=== PATIENT | female | born 1970 | race Caucasian/White ===

== ENCOUNTER 2023-06-07 23:09 | Emergency (ER) | payer OTHER, SELFPAY ==
[2023-06-07 23:11] VITALS: BP 176/108
--- NOTE | 2023-06-07 23:26 | ED.GENMED ---
History of Present Illness
General
Chief Complaint: Abdominal Pain
Source: patient
Exam Limitations: none
Time Seen by Provider: 06/07/23 23:15
Travel History
Have you had any contact with someone who has COVID-19?: No
Do you have any symptoms of coronavirus? Fever > 100 degrees, chills, cough, shortness of breath, sore throat, loss of taste or smell, muscle aches, or headache?: No
History of Present Illness
History of Present Illness:
This is a 52 year old female that comes in with c/o abd pain. States that she has a history of Ischemic colitis. States that she has been doing great until about 1 hours ago. States that she was getting ready for bed and she took her Miralax as she
normally does. States that she started with severe abd pain in the center of her abd the rolls to the left side. States that she has nausea and diarrhea. States that she has not really vomited. States that when the pain starts she is dizzy. Denies
any fever, chills, chest pain, SOB, vomiting, headache, urinary burning.
Past History
Past History
ED Past Medical History: CVA (No residural), HTN and Other (Gastroenteritis, Ischemic Colitis, Reynaud's, diverticulitis, )
ED Past Surgical History: Appendectomy, , Orthopedic (Right knee surgery, ) and Other (Abd reconstruction after Dehiscence of C-sect)
Social History
Tobacco: Former smoker
Alcohol: Occasional
Drug: None
Personal:
Living: with family
Employment: Employed
Family History
Family History: Hypertension
Review of Systems
Review of Systems
All Other Systems: ROS reviewed and negative except as documented in HPI and ROS
Constitutional: Reports no symptoms; Denies fever or chills
EENT: Reports no symptoms
Respiratory: Reports no symptoms; Denies cough or trouble breathing
Cardiac: Reports no symptoms; Denies chest pain
ABD/GI: Reports abdominal pain, nausea and diarrhea; Denies vomiting
: Reports no symptoms
Musculoskeletal: Reports no symptoms
Skin: Reports no symptoms
Neurological: Reports dizzy; Denies headache
Psychiatric: Reports no symptoms
Phy Exam
General Physical Exam
General Presentation: moderate distress
General age: appears stated age
General Skin: warm and dry
General Habitus: normal
General Mental: alert
General Hydration: appears well hydrated
ENT Exam
ENT Exam: TM's normal, pharynx normal and neck supple
Eye Exam
Eye Exam: EOMI
Cardiovascular Exam
Cardiovascular Exam: regular rate/rhythm, no edema, no murmur and normal peripheral pulses
Pulmonary Exam
Pulmonary Exam: lungs clear, no respiratory distress, no rales, chest non tender, no crackles, no rhonchi, no wheezing and no cough
Gastrointestinal Exam
Gastrointestinal Exam: soft, no organomegaly, no pulsatile mass, non distended, tender (Generalized tenderness L>R) and other (Hypoactive bowel sounds)
Musculoskeletal Exam
Musculoskeletal Exam: full ROM and no edema
Skin Exam
Skin Exam: normal color, warm/dry, no rash and no petechia
Psychiatric Exam
Psychiatric Exam: normal mood/affect
Course
Orders/Labs/Results
Orders:
Orders
06/07/23 23:25
IV Insert/Care/Rem.- Treatment PRN
Urinalysis Reflex To Culture Urgent
Date Specimen was Collected: 06/08/23
Time Specimen was Collected: 00:23
0.9% Sodium Chloride 1000 ml [Nss] 1,000 ml IV BOLUS
Dicyclomine HCl [Bentyl] 20 mg IM NOW STA
Iohexol [Omnipaque] See Protocol PO NOW STA
Ketorolac [Toradol] 30 mg IV NOW STA
Ondansetron Injectable [Zofran] 4 mg IV NOW STA
Test Result ONCE
06/07/23 23:53
Complete Blood Count/With Diff Urgent
Comprehensive Metabolic Panel Urgent
HCG, Serum Qualitative Screen Urgent
Lactic Acid Urgent
Lipase Urgent
06/08/23 00:19
Ondansetron Injectable [Zofran] 4 mg IV NOW STA
06/08/23 01:45
CT Abd/pel W Iv And Oral Contr Urgent
Reason For Exam: left sided abd pain
06/08/23 02:19
Acetaminophen 1000MG/100Ml [Ofirmev] 1,000 mg in 100 ml .ROUTE .STK-MED
06/08/23 02:30
Urine Microscopic Reflex Cult Urgent
06/08/23 02:31
Pantoprazole [Protonix IV] 40 mg .ROUTE .STK-MED ONE
Abnormal Lab Results
06/07/23 06/08/23
23:53 02:30
RBC 4.17 L 10^6/uL
(4.20-5.40)
MCH 32.4 H pg
(27.0-31.0)
MPV 10.7 H fL
(7.4-10.4)
Chloride 112 H mmol/L
(98-107)
Carbon Dioxide 16 L mmol/L
(22-30)
BUN 23 H mg/dl
(7-17)
Glucose 105 H mg/dl
(70-99)
Leukocyte Esterase Rfl Trace A
(Negative)
Urine Bacteria (Reflex) Few A
(Negative)
06/07/23 23:53
06/07/23 23:53
CBC normal, HCG negative
Vital Signs
Initial and Last Documented VS:
Initial Vital Signs
Pulse Resp BP Pulse Ox
122 28 176/108 100
06/07/23 23:11 06/07/23 23:11 06/07/23 23:11 06/07/23 23:11
Last Documented Vital Signs
Temp Pulse Resp BP Pulse Ox
97.7 F 68 16 124/77 100
06/08/23 01:00 06/08/23 01:00 06/08/23 01:00 06/08/23 01:00 06/08/23 01:00
MDM/Problems Addressed
Differential Diagnosis Includes:
Diverticulitis, Bowel obstruction, Ischemic colitis
MDM/Problems Addressed:
This is a 52 year old female that comes in with c/o abd pain. States that this started about 1 hour ago and it starts in the middle of her abd and rolls to the left side. States that she has been going well since her Ischemic Colitis.
Will get labs and CT scan. Juan C medicate for pain and give IV fluids
Back into see patient. Reviewed labd and CT scan. Offered patient admission for her abd pain but patient would rather go home. Will discharge home.
Chronic conditions affecting care: Previous abdomnial surgery
Acute Exacerbation and/or Progression of Chronic Illness:
Ischemic colitis
Acute Exacerbation and/or Progression of Chronic Illness: Previous abdomnial surgery
*Pulse Oximetry
Patient hypoxic: no
*EKG
Interpreted by ED Provider?: NA
Rate: EKG- N/A
*Critical Care Note
Total Time (30-74mins, 75-104mins- exclusive of procedures): Not Applicable
ED Attending Note
-
Portions of this chart may have been created with voice recognition software.� Occasional wrong word or��sound alike� substitutions may have occurred due to the inherent limitations of voice recognition software.
Discharge Plan
Departure
Patient Disposition: Home (Routine Discharge)
Patient with high blood pressure during this ER visit?: No
Condition: Good
Covid-19: Not Applicable
Discharge Problem:
Abdominal pain
Instructions: Abdominal Pain
Prescriptions:
No Action
hydrochlorothiazide 25 MG tablet
25 mg PO .WEEKLY
amlodipine 2.5 mg tablet
5 mg PO DAILY
dicyclomine 20 mg tablet
20 mg PO QID PRN (Reason: stomach cramps)
hyoscyamine sulfate 0.125 mg tablet, sublingual
0.125 mg PO DAILY PRN (Reason: stomach issues)
polyethylene glycol 3350 [Miralax] 17 gram/dose powder
4 g PO DAILY Qty: 119 0RF
Benefiber Clear SF (dextrin) 3 gram/3.5 gram powder in packet
1 packet PO .[id number]
Referrals:
Baljinder Lazcano MD [Family Provider] - Call in 1-3 days for appt
Activity Restrictions/Additional Instructions:
As dsicussed, your blood work shows that you are dehydrated. Please increase your water intake to 8-8oz glasses daily. Your Lactic acid is normal along with the CT scan. This may be a GI viral syndrome. YOu may use Tylenol 1000mge very 6 hours for
pain and alternate with Ibuprofen 600mg every 6 hours with food. Follow up with the GI specialist for further evaluation. IF YOU HAVE INCREASED OR CHANGING PAIN, OR YOU HAVE ANY OTHER CONCERNS PLEASE RETURN TO THE EMERGENCY ROOM.
Interventions
Interventions:
*Risk Screen - Suicide Last Done: 06/07/23 23:11
*General Assessment Last Done: 06/08/23 03:40
*Neglect/Abuse Screening Last Done: 06/07/23 23:11
ED- Fall Risk Assessment Last Done: 06/08/23 00:13
*ED COVID-19 Vaccine History Last Done: 06/07/23 23:58
*Nursing Disposition Last Done: 06/08/23 03:40
JZ-Xsdhvc-Tytrnbjtgb Assessment Last Done: 06/08/23 00:13
Discharge Date and Time
Discharge Date/Time: 06/08/23 03:40
[2023-06-07] MEDS: BENTYL 20 MG IM (23:55)
[2023-06-07] MEDS: NSS 1000 IV (23:55)
[2023-06-07] MEDS: TORADOL 30 MG IV (23:56)
[2023-06-07] MEDS: OMNIPAQUE 50 ML PO (23:56)
[2023-06-07] MEDS: ZOFRAN 4 MG IV (23:57)
[2023-06-07 23:58] VITALS: BMI 23.7
[2023-06-08] LABS: % Basophils 0.5 % (0-2); % Eosinophils 0.9 % (0-6); % Immature Granulocytes 0.2 % (0-0.5); % Lymphocytes 24.9 % (20.5-51.1); % Monocytes 7.1 % (1.7-9.3); % Neutrophils 66.4 % (42.2-75.2); Absolute Eosinophils 0.1 10^3/uL (0-0.7); Absolute Lymphocytes 2.2 10^3/uL (1.2-3.4); Absolute Monocytes 0.6 10^3/uL (0.1-0.6); Absolute Neutrophils 5.8 10^3/uL (1.4-6.5); Hematocrit 37.2 % (37.0-47.0); Hemoglobin 13.5 g/dL (12.0-16.0); Mean Corp Hgb Conc. 36.3 g/dL (33.0-37.0); Mean Corpuscular Hgb 32.4 pg (27.0-31.0); Mean Corpuscular Volume 89.2 fL (81.0-99.0); Mean Platelet Volume 10.7 fL (7.4-10.4); Nucleated Red Blood Cells % 0 %; Platelet Count 317 10^3/uL (130-400); Red Blood Cell Count 4.17 10^6/uL (4.20-5.40); Red Cell Dist. Width 12.6 % (11.5-14.5); White Blood Cell Count 8.8 10^3/uL (4.8-10.8)
[2023-06-08 00:06] LABS: HCG, Serum Qualitative Screen Negative
[2023-06-08 00:08] VITALS: BP 141/77
[2023-06-08 00:24] LABS: ALT (SGPT) 29 U/L (0-35); AST (SGOT) 32 U/L (14-36); Albumin 4.3 g/dl (3.5-5.0); Alkaline Phosphatase 110 U/L (38-126); Blood Urea Nitrogen 23 mg/dl (7-17); Carbon Dioxide 16 mmol/L (22-30); Chloride 112 mmol/L (98-107); Estimated Creatinine Clearance 64 ml/min; Glucose 105 mg/dl (70-99); Lipase 162 U/L (23-300); Potassium 3.8 mmol/L (3.5-5.1); Sodium 137 mmol/L (135-145); Total Bilirubin 0.7 mg/dl (0.2-1.3); eGFR > 60.00
[2023-06-08] MEDS: ZOFRAN 4 MG IV (00:28)
[2023-06-08 01:00] VITALS: BP 124/77
--- NOTE | 2023-06-08 04:17 | DOWNTIME ---
There was a [employer] Downtime on 06/08/2023 from 0111 to 06/08/2023 at 0405. Downtime documentation of patient's care, including medication administrations, has been reconciled in the electronic record per guidelines. Refer to the
patient's paper chart under the miscellaneous tab to see printed paper medication records and downtime forms.
[2023-06-08 05:18] LABS: Urine Albumin Negative (Neg - Trace); Urine Bilirubin Negative (Negative); Urine Character Clear (Clear); Urine Color Yellow; Urine Glucose Negative (Negative); Urine Ketone Negative (Negative); Urine Leukocyte Trace (Negative); Urine Nitrite Negative (Negative); Urine Occult Blood Negative (Negative); Urine Urobilinogen Negative (Neg - 1+)
[2023-06-08 05:19] LABS: Urine Bacteria Few (Negative); Urine Red Blood Cell None Seen /HPF (0-2)
== END 2023-06-08 03:40 | disposition home or self-care (01) ==
LOC: EMR 23:09
PROVIDERS: Clinical Nurse Specialist Family Health; EMERGENCY PHYSICIAN Emergency Medicine; FAMILY PHYSICIAN Family Medicine
DX: R10.9 Unspecified abdominal pain (principal); I10 Essential (primary) hypertension; Z82.49 Family history of ischemic heart disease and other diseases of the circulatory system; Z86.73 Personal history of transient ischemic attack (TIA), and cerebral infarction without residual deficits; Z87.891 Personal history of nicotine dependence; Z90.49 Acquired absence of other specified parts of digestive tract
CPT/HCPCS: 99284; 96374 ×2; 96375; 74177; 80053; 81003; 81015; 83605; 83690; 84703; 85025; Q9967

== ENCOUNTER 2023-12-24 03:17 | Inpatient (IN) | payer OTHER, SELFPAY ==
[2023-12-24] VITALS (8 sets, daily range): BP systolic 106–170; BP diastolic 66–100
--- NOTE | 2023-12-24 01:43 | ED.GENMED ---
History of Present Illness
General
Chief Complaint: Abdominal Symptoms
Source: patient
Exam Limitations: none
Time Seen by Provider: 12/24/23 01:36
Nursing documentation reviewed up to this point in time: agreed with
History of Present Illness
History of Present Illness:
The patient is a 53-year-old female who arrives via ambulance for 2 days of severe nausea and vomiting. Patient has a history of colitis and constipation. She reports she has not had a solid large bowel movement for at least 3 to 4 days. She
reports she has had liquidy diarrhea for the last 2 days. She denies fever. She denies abdominal pain. Patient was given Zofran en route but states it has not helped. Patient appears extremely anxious. She reports occasional alcohol use and
frequent use of marijuana. She last used marijuana 2 days ago. She reports she had 1 alcoholic drink this evening.
Past History
Past History
ED Past Medical History: CVA (No residural), HTN and Other (Gastroenteritis, Ischemic Colitis, Reynaud's, diverticulitis, )
ED Past Surgical History: Appendectomy, , Orthopedic (Right knee surgery, ) and Other (Abd reconstruction after Dehiscence of C-sect)
Social History
Tobacco: Former smoker
Alcohol: Occasional
Drug: None
Personal:
Living: with family
Employment: Employed
Family History
Family History: Hypertension
Review of Systems
Review of Systems
Allergies reviewed?: Yes
All Other Systems: ROS reviewed and negative except as documented in HPI and ROS
Constitutional: Reports no symptoms
EENT: Reports no symptoms
Respiratory: Reports no symptoms
Cardiac: Reports no symptoms
ABD/GI: Reports nausea, diarrhea, constipated and anorexia
: Reports no symptoms
Musculoskeletal: Reports no symptoms
Skin: Reports no symptoms
Neurological: Reports no symptoms
Endocrine: Reports no symptoms
Hematologic/Lymphatic: Reports no symptoms
Psychiatric: Reports no symptoms
Phy Exam
Physical Exam
Physical Exam:
Physical Exam
General: Patient appears extremely anxious. Is dry heaving
Neck: Dry mucous membrane
Heart: Tachycardic
Lungs: no acute respiratory distress. clear bilaterally
Abdomen: normal bowel sounds. not tender. no CVAT.
Neuro: alert and oriented. no focal neurological deficits
Skin: no rash
Psychiatric: Extremely anxious
Extremities: no edema. no calf tenderness. negative homans. good distal pulses
Course
Orders/Labs/Results
Orders:
Orders
12/24/23 01:36
Diphenhydramine [Benadryl] 25 mg IV NOW STA
12/24/23 01:37
0.9% Sodium Chloride 1000 ml [Nss] 1,000 ml IV BOLUS
Prochlorperazine [Compazine] 10 mg IV NOW STA
12/24/23 01:49
Alcohol Urgent
Complete Blood Count/With Diff Urgent
Comprehensive Metabolic Panel Urgent
Lactic Acid Urgent
Lipase Urgent
12/24/23 02:12
Electrocardiogram (*1) Urgent
Reason for Study: Abdominal Pain
EKG- Treatment ONCE
12/24/23 02:14
Lorazepam [Ativan] 1 mg IV NOW STA
12/24/23 02:15
CT Abd/pelvis W Iv Cont Urgent
Comment:
Reason For Exam: n/v, acidotic
0.9% Sodium Chloride 1000 ml [Nss] 1,000 ml IV BOLUS
12/24/23 03:05
Admit/Transfer Patient As Directed
Co-Sign Provider:
Level of Care: Inpatient admission
Assign to:: Telemetry
Physician / Group: Solomon
Diagnosis: Intractable N/V, Constipation
Reason for Telemetry: Arrhythmia
Date to Stop Telemetry: 12/27/23
Time to Stop Telemetry: 11:00
Reason for Hospitalization: Intractable N/V, Constipation
Expected length of stay greater than two midnights?: Yes
ELOS- Estimated Length of Stay in days: 2
I certify the patient meets the requirements for IP care: Yes
PRN Pain Medication Management As Directed
May give lesser potent ordered pain med per pt: Yes
preference::
Protocol:: Medication orders for pain may be administered in a
manner that supports deferring to patient preference
when the pt is:
- Requesting an ordered lesser potent pain medication.
Least to most potent pain medications are defined
as: acetaminophen < NSAID < tramadol < opioids
(morphine, oxycodone, hydromorphone).
- Requesting a lesser dose of the same medication IF
ORDERED.
- Requesting a less intrusive route of administration
if both routes are prescribed by the provider (PO <
IV).
12/24/23 03:06
Code Status As Directed
Resuscitation Status: Full Code
12/24/23 04:10
Acetaminophen [Tylenol] 650 mg PO Q4HPRN PRN
Dicyclomine [Bentyl] 20 mg PO QID PRN
Lactated Ringers [Lr] 1,000 ml IV 150 mls/hr
12/24/23 04:10
Consult Notification Routine
Specialty to Notify: Gastroenterology
Date consulting provider notified: 12/24/23
Time consulting provider notified: 07:53
Notified:: Provider
Comment: via TT
GASTROINTESTINAL CONSULT Routine
Consulting Provider: Zunilda Peralta
Was physician already notified: No
Reason for consult: Intractable N/V, Constipation
Activity As Directed
Activity Level: Ambulate
I/O [Intake/ Output] As Directed
Frequency: Per unit guidelines
Orthostatic Vital Signs As Directed
Orthostatic VS Frequency: BID
Pneumatic Compression Sleeves As Directed
Type: Knee high
Vital Signs As Directed
Frequency: Per unit guidelines
Oxygen Therapy [O2 Therapy] [RESP] Routine
Titrate/Wean O2 to maintain O2 sat greater than (%): 94
DX Deep Vein Thrombosis Video Routine
12/24/23 07:40
Basic Metabolic Panel IN AM
Complete Blood Count/No Diff IN AM
Lactic Acid Q6H
TSH Reflex To Free T4 Routine
12/24/23 08:00
Amlodipine [Norvasc] 5 mg PO DAILY
Polyethylene Glycol Powder [Miralax] 17 grams PO DAILY
12/24/23 09:46
Lactic Acid Q6H
12/24/23 22:00
Sennosides [Senokot] 17.2 mg PO HS
12/24/23 22:16
Lactic Acid Q6H
12/27/23 11:00
DC Protocol for Telemetry ONCE
Abnormal Lab Results
12/24/23
01:49
WBC 11.1 H 10^3/uL
(4.8-10.8)
RBC 3.97 L 10^6/uL
(4.20-5.40)
Hct 35.1 L %
(37.0-47.0)
MCH 31.7 H pg
(27.0-31.0)
MPV 10.6 H fL
(7.4-10.4)
Absolute Neuts (auto) 8.3 H 10^3/uL
(1.4-6.5)
Lymphocytes % 19.3 L %
(20.5-51.1)
Chloride 109 H mmol/L
(98-107)
Carbon Dioxide 16 L mmol/L
(22-30)
Glucose 136 H mg/dl
(70-99)
Lactic Acid 4.0 H* mmol/L
(0.7-2.0)
12/24/23 01:49
12/24/23 01:49
Vital Signs
Initial and Last Documented VS:
Initial Vital Signs
Pulse Ox
100
12/24/23 01:38
Last Documented Vital Signs
Temp Pulse Resp BP Pulse Ox
98.4 F 68 16 155/75 99
12/25/23 12:00 12/25/23 12:00 12/25/23 12:00 12/25/23 12:00 12/25/23 12:00
MDM/Problems Addressed
Differential Diagnosis Includes:
Acute gastroenteritis, acute colitis, acute diverticulitis, small bowel obstruction, constipation
MDM/Problems Addressed:
Patient presents with acute vomiting and nausea
Chronic conditions affecting care:
Constipation, marijuana use
Chronic conditions affecting care: Previous abdomnial surgery
Acute Exacerbation and/or Progression of Chronic Illness: Previous abdomnial surgery
*Pulse Oximetry
Patient hypoxic: no
*EKG
Interpreted by ED Provider?: Yes
Interpretation: normal
Comparison EKG: no changes
Rate: normal
Rhythm: sinus
[place]: normal axis
Interval: normal interval
QRS Pattern: normal QRS
Ischemia: no ischemia
*Twister Tender Interpretation
Rate: normal
Interpretation: normal
Rhythm: sinus
*Critical Care Note
Total Time (30-74mins, 75-104mins- exclusive of procedures): Not Applicable
Data Reviewed
Review of Other/Old Records Reveals: Radiology Studies (CT abdomen pelvis reviewed from May 2023 which showed no acute disease and possible constipation)
Source: patient
ED Attending Note
-
Portions of this chart may have been created with voice recognition software.� Occasional wrong word or��sound alike� substitutions may have occurred due to the inherent limitations of voice recognition software.
Discharge Plan
Departure
Patient Disposition: Admit
Date of Disposition: 12/24/23
Time of Disposition: 02:53
Admit to: Med/Surg
Presentation/result/management discussed w/ accepting MD/DO: Hospitalist
Patient with high blood pressure during this ER visit?: Yes
Condition: Good
Covid-19: Not Applicable
Discharge Problem:
Acute lactic acidosis, Intractable nausea and vomiting
Interventions
Interventions:
*Risk Screen - Suicide Last Done: 12/24/23 01:57
*General Assessment Last Done: 12/24/23 01:40
*Neglect/Abuse Screening Last Done: 12/24/23 01:57
ED- Fall Risk Assessment Last Done: 12/24/23 03:49
*ED COVID-19 Vaccine History Last Done: 12/24/23 02:02
*Nursing Disposition Last Done: 12/24/23 03:49
TY-Cbqpkz-Hmermqgzmn Assessment Last Done: 12/24/23 01:37
Discharge Date and Time
Discharge Date/Time: 12/24/23 04:05
[2023-12-24] MEDS: BENADRYL 25 MG IV (01:46)
[2023-12-24] MEDS: COMPAZINE 10 MG IV (01:47)
[2023-12-24] MEDS: NSS 1000 IV ×2 (01:48→02:29)
[2023-12-24 01:58] LABS: % Basophils 0.6 % (0-2); % Eosinophils 0.5 % (0-6); % Immature Granulocytes 0.4 % (0-0.5); % Lymphocytes 19.3 % (20.5-51.1); % Monocytes 4.3 % (1.7-9.3); % Neutrophils 74.9 % (42.2-75.2); Absolute Basophils 0.1 10^3/uL (0-0.2); Absolute Eosinophils 0.1 10^3/uL (0-0.7); Absolute Lymphocytes 2.1 10^3/uL (1.2-3.4); Absolute Monocytes 0.5 10^3/uL (0.1-0.6); Absolute Neutrophils 8.3 10^3/uL (1.4-6.5); Hematocrit 35.1 % (37.0-47.0); Hemoglobin 12.6 g/dL (12.0-16.0); Mean Corp Hgb Conc. 35.9 g/dL (33.0-37.0); Mean Corpuscular Hgb 31.7 pg (27.0-31.0); Mean Corpuscular Volume 88.4 fL (81.0-99.0); Mean Platelet Volume 10.6 fL (7.4-10.4); Nucleated Red Blood Cells % 0 %; Platelet Count 243 10^3/uL (130-400); Red Blood Cell Count 3.97 10^6/uL (4.20-5.40); Red Cell Dist. Width 12.9 % (11.5-14.5); White Blood Cell Count 11.1 10^3/uL (4.8-10.8)
[2023-12-24 02:11] LABS: ALT (SGPT) 25 U/L (0-35); AST (SGOT) 24 U/L (14-36); Albumin 4.5 g/dl (3.5-5.0); Alkaline Phosphatase 97 U/L (38-126); Blood Urea Nitrogen 12 mg/dl (7-17); Carbon Dioxide 16 mmol/L (22-30); Chloride 109 mmol/L (98-107); Glucose 136 mg/dl (70-99); Lipase 109 U/L (23-300); Potassium 3.7 mmol/L (3.5-5.1); Sodium 143 mmol/L (135-145); Total Bilirubin 0.5 mg/dl (0.2-1.3); Total Protein 6.8 g/dl (6.3-8.2); eGFR > 60.00
[2023-12-24] MEDS: ATIVAN 1 MG IV (02:24)
--- NOTE | 2023-12-24 03:18 | HPS.HSE ---
Family Physician
-
Family Physician: PHYSICIAN PRIVATE
Chief Complaint
-
N/V, Constipation
History of Present Illness
Patient is a 53y F with PMH significant for hypertension, constipation and prior colitis / ? ischemic who presents to ED complaining of N/V and constipation. Patient states that she has not had a solid BM for the past 3-4 days. She reports
development of N/V which has persisted for the past 2 days. She denies any fevers / chills, urinary symptoms or abdominal pain. Patient was evaluated in the ED and treated for her nausea.
At the time of my examination, patient is soundly sleeping and somewhat difficult to arouse after IV Ativan, Benadryl and Compazine.
Patient admits to frequent marijuana use. She drinks alcohol occasionally and reportedly had alcohol earlier this evening.
Patient was described as very anxious for ED physician assessment.
Medical History
Past Medical History
Past Medical History: Reports Other
Additional Past Medical History:
Hypertension
Chronic Constipation
ADD
Reported TIA (2010)
Diverticular Disease
Reported Ischemic Colitis
Past Surgical History: Reports Other
Additional Past Surgical History:
Right Knee Arthroscopy
Appendectomy
Social History
Tobacco: Former Smoker
Alcohol: Occasional
Drug: Marijuana (Frequent use. Last 2-3 days ago.)
Family History
Family History: Not pertinent
Allergies / Home Medications
Allergies reflects when Allergies were last updated in [employer].
Home Medications with original date entered in [employer]
Allergy/Medication List:
Allergies
Allergy/AdvReac Type Severity Reaction Status Date / Time
morphine Allergy Shortness Verified 12/24/23 01:37
of Breath
naproxen Allergy vomiting Verified 12/24/23 01:37
nut - unspecified Allergy Anaphylaxis Verified 12/24/23 01:37
Penicillins Allergy Unknown Verified 12/24/23 01:37
Home Medications
hydrochlorothiazide 25 mg tablet 25 mg PO DAILY 04/16/12
amlodipine 2.5 mg tablet 5 mg PO DAILY 11/04/22
dicyclomine 20 mg tablet 20 mg PO QID PRN stomach cramps 11/04/22
hyoscyamine sulfate 0.125 mg sublingual tablet 0.125 mg PO DAILY PRN stomach issues 11/04/22
polyethylene glycol 3350 17 gram/dose oral powder (Miralax) 4 g PO DAILY #119 grams 11/06/22
wheat dextrin 3 gram/3.5 gram oral powder packet (Benefiber Clear Sugar Free(dextrin)) 1 packet PO .[id number] 06/08/23
Review of Systems
-
History Source: Patient (Limited ROS due to somnolence.)
Constitutional: Denies Fever or Chills
Abdomen/GI: Reports Nausea, Vomiting and Constipated; Denies Abdominal Pain
Physical Exam
Vital Signs
Vital Signs
Temp Pulse Resp BP Pulse Ox
98.3 F 53 18 142/100 98
12/24/23 02:01 12/24/23 02:01 12/24/23 02:01 12/24/23 02:01 12/24/23 02:01
Physical Exam
General: Other (53y F sleeping comfortably after meds in the ED. Difficult to rouse.)
HEENT: Other (Dry MM. Neck supple.)
Respiratory: Clear; No Wheezes, Rales or Rhonchi
Cardiac: S1/S2 and Regular Rhythm; No Murmur
GI: Soft, Non Tender, Non Distended and Normal Bowel Sounds
Musculoskeletal: No Clubbing, No Cyanosis and No Edema
Laboratory Results
-
12/24/23 01:49
12/24/23 01:49
Laboratory Results
Lactic Acid 4.0 mmol/L (0.7-2.0) H* 12/24/23 01:49
Total Bilirubin 0.5 mg/dl (0.2-1.3) 12/24/23 01:49
AST 24 U/L (14-36) 12/24/23 01:49
ALT 25 U/L (0-35) 12/24/23 01:49
Alkaline Phosphatase 97 U/L (38-126) 12/24/23 01:49
Lipase 109 U/L (23-300) 12/24/23 01:49
Impression/Plan
-
A/P: Patient is a 53y F with PMH significant for constipation and hypertension who presents to ED complaining of constipation and N/V for the past 2 days.
Diffuse Colitis
Chronic Constipation
N/V secondary to the above
Lactic Acidosis secondary to the above
- Admit for further evaluation and treatment.
- CT scan done in the ED shows mild, diffuse wall thickening c/w colitis.
- Elevated lactic acid - but no imaging findings specific for regional ischemia (in fact diffuse colitis makes this somewhat less likely).
- Cover with IV abx for now and follow for clinical improvement.
- Supportive care including IVFs, bowel regimen, antiemetics, etc.
- Follow serial lactate levels for improvement with IVF replacement.
- GI evaluation for additional recommendations.
- Would family court counsellor against continued marijuana use given correlation with N/V issues.
Benign Hypertension
- Continue amlodipine with holding parameters.
- Would hold HCTZ and likely remain off of this given chronic issues with constipation / dehydration.
Anxiety / Depression
- Very anxious on arrival to the ED.
- After medications, now sleeping soundly.
- Not on any maintenance medications for mood - consider SSRI or similar.
- Fairly somnolent following med administration in the ED - follow for improvement in mental state as meds wear off.
DVT Prophylaxis: SCDs
Code Status: Full
[2023-12-24] MEDS: COMPAZINE 5 MG IV (05:06)
[2023-12-24] MEDS: FLAGYL 500 MG 100 IV (05:06)
[2023-12-24] MEDS: LR 1000 IV ×3 (05:06→21:45)
[2023-12-24 05:45] LABS: Alcohol 104 mg/dl
[2023-12-24] MEDS: LEVAQUIN 100 IV (06:15)
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
[2023-12-24 07:41] LABS: Amphetamines Negative (Negative)
[2023-12-24 07:42] LABS: Barbiturates Negative (Negative); Benzodiazepines Positive (Negative); Buprenorphine Negative (Negative); Cocaine Negative (Negative); Marijuana Positive (Negative); Methadone Negative (Negative); Methamphetamines Negative (Negative); Opiates Negative (Negative); Phencyclidine Negative (Negative); Tricyclic Antidepressants Negative (Negative)
[2023-12-24 08:01] LABS: Lactic Acid 2.7 mmol/L (0.7-2.0)
[2023-12-24 08:24] LABS: Fentanyl, Urine Negative (Negative)
[2023-12-24 08:27] LABS: Hematocrit 35.3 % (37.0-47.0); Hemoglobin 12.7 g/dL (12.0-16.0); Mean Corpuscular Hgb 32.6 pg (27.0-31.0); Mean Corpuscular Volume 90.5 fL (81.0-99.0); Mean Platelet Volume 11.4 fL (7.4-10.4); Platelet Count 231 10^3/uL (130-400); White Blood Cell Count 9.7 10^3/uL (4.8-10.8)
[2023-12-24 09:48] LABS: Blood Urea Nitrogen 7 mg/dl (7-17); Calcium 9.3 mg/dl (8.4-10.2); Carbon Dioxide 13 mmol/L (22-30); Chloride 104 mmol/L (98-107); Estimated Creatinine Clearance 85 ml/min; Glucose 119 mg/dl (70-99); Sodium 138 mmol/L (135-145); eGFR > 60.00
[2023-12-24 10:03] LABS: Lactic Acid 2.2 mmol/L (0.7-2.0)
[2023-12-24] MEDS: NORVASC PO (10:52)
[2023-12-24] MEDS: ZOFRAN 4 MG IV ×2 (11:59→18:11)
[2023-12-24] MEDS: APRESOLINE 10 MG IV (13:23)
[2023-12-24] MEDS: FLAGYL 500 MG IV (13:39)
[2023-12-24] MEDS: PEPCID 20 MG IV (13:40)
[2023-12-24] MEDS: NSS (PRESERVATIVE FREE) 8 ML IV (13:41)
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
[2023-12-24] MEDS: REGLAN 10 MG IV (14:49)
[2023-12-24] MEDS: PROTONIX IV 40 MG IV (14:49)
[2023-12-24] MEDS: NSS (PRESERVATIVE FREE) 10 ML IV (14:50)
--- NOTE | 2023-12-24 14:59 | CM ---
Attempted to complete assessment with pt though she was very tired and unarousable for interview.
SW will continue to follow through admission and discharge support.
[2023-12-25 00:27] LABS: Lactic Acid 1.1 mmol/L (0.7-2.0)
[2023-12-25] MEDS: ZOFRAN 4 MG IV (00:34)
[2023-12-25 03:34] VITALS: BP 107/61
[2023-12-25] MEDS: LR 1000 IV (03:49)
[2023-12-25 08:00] VITALS: BP 130/82
[2023-12-25 08:03] LABS: % Basophils 0.3 % (0-2); % Eosinophils 0.3 % (0-6); % Immature Granulocytes 0.3 % (0-0.5); % Lymphocytes 37.9 % (20.5-51.1); % Monocytes 7.2 % (1.7-9.3); Absolute Lymphocytes 2.6 10^3/uL (1.2-3.4); Absolute Monocytes 0.5 10^3/uL (0.1-0.6); Absolute Neutrophils 3.7 10^3/uL (1.4-6.5); Hematocrit 30.8 % (37.0-47.0); Hemoglobin 11.1 g/dL (12.0-16.0); Mean Corpuscular Hgb 32.6 pg (27.0-31.0); Mean Corpuscular Volume 90.3 fL (81.0-99.0); Mean Platelet Volume 11.7 fL (7.4-10.4); Nucleated Red Blood Cells % 0 %; Platelet Count 192 10^3/uL (130-400); Red Blood Cell Count 3.41 10^6/uL (4.20-5.40); Red Cell Dist. Width 13.2 % (11.5-14.5); White Blood Cell Count 6.8 10^3/uL (4.8-10.8)
[2023-12-25 08:23] LABS: Blood Urea Nitrogen 9 mg/dl (7-17); Calcium 9.6 mg/dl (8.4-10.2); Carbon Dioxide 22 mmol/L (22-30); Chloride 107 mmol/L (98-107); Estimated Creatinine Clearance 57 ml/min; Glucose 88 mg/dl (70-99); Potassium 3.8 mmol/L (3.5-5.1); Sodium 140 mmol/L (135-145); eGFR > 60.00
[2023-12-25] MEDS: NORVASC 5 MG PO (08:36)
--- NOTE | 2023-12-25 10:13 | VATNOTE ---
Left arm IV appears to be EMS IV. Patient declined restart at this time as she believes she is being discharged today.
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
[2023-12-25 12:00] VITALS: BP 155/75
[2023-12-25] MEDS: LR IV (12:12)
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
== END 2023-12-25 15:51 | disposition home or self-care (01) | DRG 918 ==
LOC: 3 WEST ACU 03:17
PROVIDERS: ADMITTING PHYSICIAN Hospitalist; ATTENDING PHYSICIAN Internal Medicine; CONSULT PHYSICIAN Internal Medicine; EMERGENCY PHYSICIAN Emergency Medicine
DX: T50.904A Poisoning by unspecified drugs, medicaments and biological substances, undetermined, initial encounter (principal); E87.21 Acute metabolic acidosis; Y92.9 Unspecified place or not applicable; I10 Essential (primary) hypertension; I73.00 Raynaud's syndrome without gangrene; R11.2 Nausea with vomiting, unspecified; R19.7 Diarrhea, unspecified; F12.90 Cannabis use, unspecified, uncomplicated; K58.1 Irritable bowel syndrome with constipation; R41.3 Other amnesia; F10.90 Alcohol use, unspecified, uncomplicated; K57.30 Diverticulosis of large intestine without perforation or abscess without bleeding; F32.A Depression, unspecified; F41.9 Anxiety disorder, unspecified; E86.0 Dehydration; Z87.891 Personal history of nicotine dependence; Z86.73 Personal history of transient ischemic attack (TIA), and cerebral infarction without residual deficits; Z88.5 Allergy status to narcotic agent; Z88.0 Allergy status to penicillin; Z87.19 Personal history of other diseases of the digestive system; Z88.6 Allergy status to analgesic agent
CPT/HCPCS: 74177; 80048; 80053; 80306; 80307; 82077; 83605; 83690; 84443; 85025; 85027; 93005; 96361; 96374; 96375; 99285; Q9967

== ENCOUNTER 2024-04-09 06:33 | Emergency (ER) | payer OTHER, SELFPAY ==
[2024-04-09] VITALS (12 sets, daily range): BP systolic 141–209; BP diastolic 69–125
--- NOTE | 2024-04-09 07:08 | ED.GENMED ---
History of Present Illness
General
Chief Complaint: Abdominal Pain
Source: patient
Exam Limitations: none
Time Seen by Provider: 04/09/24 07:03
Nursing documentation reviewed up to this point in time: agreed with
History of Present Illness
History of Present Illness:
53-year-old female with past medical history of Raynaud's, hypertension, previous stroke presenting to the emergency department with concerns of nausea vomiting diarrhea. He denies any chest pain shortness of breath numbness or weakness. Denies
any fevers blood in the stool or vomit
Past History
Past History
ED Past Medical History: CVA (No residural), HTN and Other (Gastroenteritis, Ischemic Colitis, Reynaud's, diverticulitis, )
ED Past Surgical History: Appendectomy, , Orthopedic (Right knee surgery, ) and Other (Abd reconstruction after Dehiscence of C-sect)
Social History
Tobacco: Former smoker
Alcohol: Occasional
Drug: None
Personal:
Living: with family
Employment: Employed
Family History
Family History: Hypertension
Review of Systems
Review of Systems
Allergies reviewed?: Yes
All Other Systems: ROS reviewed and negative except as documented in HPI and ROS
Phy Exam
Physical Exam
Physical Exam:
GENERAL: Alert , in no apparent distress
EYE: pupils equal and reactive
NECK: Supple, no significant adenopathy.
ENT: o/p clr, mmm.
CARDIAC: Regular rate and rhythm .
LUNGS: Clear breath sounds bilaterally, no acute respiratory distress, no wheezes/rales/rhonchi
ABDOMEN: Soft, without focal tenderness, no r/g, no cvat
NEUROLOGICAL: Alert and oriented, no focal neuro deficits
SKIN: Warm and dry, skin intact.
MUSCULOSKELETAL: No edema, well perfused.
PSYCH: Normal and appropriate interaction.
Course
Orders/Labs/Results
Orders:
Orders
04/09/24 07:04
Ondansetron Injectable [Zofran] 4 mg .ROUTE .STK-MED ONE
04/09/24 07:07
Famotidine [Pepcid] 20 mg .ROUTE .STK-MED ONE
04/09/24 07:08
Famotidine [Pepcid] 20 mg IV NOW STA
04/09/24 07:09
Ondansetron Injectable [Zofran] 4 mg IV NOW STA
04/09/24 07:10
Urinalysis Reflex To Culture Urgent
Date Specimen was Collected: 04/09/24
Time Specimen was Collected: 08:06
0.9% Sodium Chloride 1000 ml [Nss] 1,000 ml IV BOLUS
04/09/24 07:22
Complete Blood Count/With Diff Urgent
Comprehensive Metabolic Panel Urgent
Lipase Urgent
04/09/24 07:35
Electrocardiogram (*1) Urgent
Reason for Study: Bradycardia / Tachycardia
EKG- Treatment ONCE
04/09/24 07:50
Diphenhydramine [Benadryl] 25 mg IV NOW STA
Prochlorperazine [Compazine] 10 mg IV NOW STA
04/09/24 08:43
Haloperidol Lactate [Haldol] 2 mg IV NOW STA
04/09/24 11:22
0.9% Sodium Chloride 1000 ml [Nss] 1,000 ml IV BOLUS
04/09/24 11:44
EKG [Electrocardiogram (*1)] Urgent
Reason for Study: Fatigue / Weakness
EKG- Treatment ONCE
Abnormal Lab Results
04/09/24
07:22
WBC 10.9 H 10^3/uL
(4.8-10.8)
RBC 3.98 L 10^6/uL
(4.20-5.40)
MCH 31.4 H pg
(27.0-31.0)
MPV 11.6 H fL
(7.4-10.4)
Absolute Neuts (auto) 9.8 H 10^3/uL
(1.4-6.5)
Absolute Lymphs (auto) 0.8 L 10^3/uL
(1.2-3.4)
Neutrophils % 89.3 H %
(42.2-75.2)
Lymphocytes % 7.1 L %
(20.5-51.1)
Carbon Dioxide 20 L mmol/L
(22-30)
Glucose 169 H mg/dl
(70-99)
04/09/24 07:22
04/09/24 07:22
Vital Signs
Initial and Last Documented VS:
Initial Vital Signs
Pulse Resp BP Pulse Ox
68 26 209/103 97
04/09/24 06:38 04/09/24 06:38 04/09/24 06:38 04/09/24 06:38
Last Documented Vital Signs
Pulse Resp BP Pulse Ox
49 18 141/79 99
04/09/24 12:45 04/09/24 12:45 04/09/24 12:00 04/09/24 09:30
MDM/Problems Addressed
MDM/Problems Addressed:
53-year-old female presenting to the emergency department for concerns of nausea vomiting diarrhea. No abdominal tenderness to palpation. No fever initial blood pressure elevated. Patient was given initial dose of Zofran famotidine fluids patient
still with ongoing significant symptoms. Then given additional dose Compazine and Benadryl. Patient on the monitor was showing some potential arrhythmia. EKG showing a potential junctional escape rhythm no evidence of block. Patient was given
Zofran and Haldol concerned the patient also uses daily marijuana. Patient had significant improvement of symptoms at this point. Repeat EKG without any ongoing arrhythmia. Patient appears stable for discharge at this time return precautions
given.
*Critical Care Note
Total Time (30-74mins, 75-104mins- exclusive of procedures): Not Applicable
ED Attending Note
-
Portions of this chart may have been created with voice recognition software.� Occasional wrong word or��sound alike� substitutions may have occurred due to the inherent limitations of voice recognition software.
Discharge Plan
Departure
Patient Disposition: Home (Routine Discharge)
Date of Disposition: 04/09/24
Time of Disposition: 12:53
Patient with high blood pressure during this ER visit?: No
Condition: Good
Covid-19: Not Applicable
Discharge Problem:
Abdominal pain, vomiting, and diarrhea
Instructions: Nausea and Vomiting, Adult (DC)
Prescriptions:
New
ondansetron 4 mg tablet,disintegrating
4 mg PO Q6H PRN (Reason: nausea and vomiting) Qty: 7 0RF
No Action
hydrochlorothiazide 25 MG tablet
25 mg PO DAILY
amlodipine 2.5 mg tablet
5 mg PO DAILY
dicyclomine 20 mg tablet
20 mg PO QID PRN (Reason: stomach cramps)
hyoscyamine sulfate 0.125 mg tablet, sublingual
0.125 mg PO DAILY PRN (Reason: stomach issues)
polyethylene glycol 3350 [Miralax] 17 gram/dose powder
4 g PO DAILY Qty: 119 0RF
Benefiber Clear SF (dextrin) 3 gram/3.5 gram powder in packet
1 packet PO .[id number]
ondansetron HCl 4 mg tablet
4 mg PO Q8H PRN (Reason: Nausea) 3 Days Qty: 10 0RF
Referrals:
NONE,* [Family Provider] -
Activity Restrictions/Additional Instructions:
You came to the emergency department today with concerns of nausea vomiting diarrhea. Here you had improvement of symptoms after multiple medications. Symptoms should hopefully be improving over the next few days while at home. Return for any
worsening, new or concerning symptoms.
Interventions
Interventions:
*Risk Screen - Suicide Last Done: 04/09/24 09:52
*General Assessment Last Done: 04/09/24 09:52
*Neglect/Abuse Screening Last Done: 04/09/24 09:52
*ED COVID-19 Vaccine History Last Done: 04/09/24 06:36
XD-Kmhpep-Eqwisjdoho Assessment Last Done: 04/09/24 08:00
Discharge Date and Time
Print Language: HEBREW
[2024-04-09] MEDS: ZOFRAN 4 MG IV (07:09)
[2024-04-09] MEDS: PEPCID 20 MG IV (07:09)
[2024-04-09] MEDS: NSS 1000 IV ×2 (07:10→13:20)
[2024-04-09 07:37] LABS: % Basophils 0.3 % (0-2); % Immature Granulocytes 0.4 % (0-0.5); % Lymphocytes 7.1 % (20.5-51.1); % Monocytes 2.9 % (1.7-9.3); % Neutrophils 89.3 % (42.2-75.2); Absolute Lymphocytes 0.8 10^3/uL (1.2-3.4); Absolute Monocytes 0.3 10^3/uL (0.1-0.6); Absolute Neutrophils 9.8 10^3/uL (1.4-6.5); Hemoglobin 12.5 g/dL (12.0-16.0); Mean Corp Hgb Conc. 33.8 g/dL (33.0-37.0); Mean Corpuscular Hgb 31.4 pg (27.0-31.0); Mean Platelet Volume 11.6 fL (7.4-10.4); Nucleated Red Blood Cells % 0 %; Platelet Count 184 10^3/uL (130-400); Red Blood Cell Count 3.98 10^6/uL (4.20-5.40); Red Cell Dist. Width 12.4 % (11.5-14.5); White Blood Cell Count 10.9 10^3/uL (4.8-10.8)
[2024-04-09 07:50] LABS: ALT (SGPT) 25 U/L (0-35); AST (SGOT) 34 U/L (14-36); Albumin 4.8 g/dl (3.5-5.0); Alkaline Phosphatase 88 U/L (38-126); Blood Urea Nitrogen 13 mg/dl (7-17); Carbon Dioxide 20 mmol/L (22-30); Chloride 105 mmol/L (98-107); Glucose 169 mg/dl (70-99); Lipase 68 U/L (23-300); Potassium 4.4 mmol/L (3.5-5.1); Sodium 139 mmol/L (135-145); Total Bilirubin 1.1 mg/dl (0.2-1.3); Total Protein 7.2 g/dl (6.3-8.2); eGFR > 60.00
[2024-04-09] MEDS: BENADRYL 25 MG IV (08:34)
[2024-04-09] MEDS: HALDOL 2 MG IV (08:52)
== END 2024-04-09 13:29 | disposition home or self-care (01) ==
LOC: EMR 06:33
PROVIDERS: Physician Assistant; EMERGENCY PHYSICIAN Emergency Medicine
DX: R10.9 Unspecified abdominal pain (principal); R11.2 Nausea with vomiting, unspecified; R19.7 Diarrhea, unspecified; I10 Essential (primary) hypertension; Z86.73 Personal history of transient ischemic attack (TIA), and cerebral infarction without residual deficits; Z90.49 Acquired absence of other specified parts of digestive tract
CPT/HCPCS: 96374; 96375; 96361; 99284; 80053; 83690; 85025; 93005

== ENCOUNTER 2024-04-11 11:09 | Emergency (ER) | payer OTHER, SELFPAY ==
[2024-04-11 11:28] VITALS: BP 109/85
[2024-04-11 12:03] LABS: % Basophils 0.3 % (0-2); % Immature Granulocytes 0.3 % (0-0.5); % Monocytes 7.7 % (1.7-9.3); % Neutrophils 73.7 % (42.2-75.2); Absolute Lymphocytes 1.8 10^3/uL (1.2-3.4); Absolute Monocytes 0.8 10^3/uL (0.1-0.6); Absolute Neutrophils 7.5 10^3/uL (1.4-6.5); Hematocrit 42.1 % (37.0-47.0); Hemoglobin 14.9 g/dL (12.0-16.0); Mean Corp Hgb Conc. 35.4 g/dL (33.0-37.0); Mean Corpuscular Hgb 30.9 pg (27.0-31.0); Mean Corpuscular Volume 87.3 fL (81.0-99.0); Mean Platelet Volume 10.9 fL (7.4-10.4); Nucleated Red Blood Cells % 0 %; Platelet Count 288 10^3/uL (130-400); Red Blood Cell Count 4.82 10^6/uL (4.20-5.40); White Blood Cell Count 10.2 10^3/uL (4.8-10.8)
[2024-04-11 12:18] LABS: ALT (SGPT) 33 U/L (0-35); AST (SGOT) 35 U/L (14-36); Albumin 5.1 g/dl (3.5-5.0); Alkaline Phosphatase 82 U/L (38-126); Blood Urea Nitrogen 10 mg/dl (7-17); Calcium 9.9 mg/dl (8.4-10.2); Carbon Dioxide 20 mmol/L (22-30); Chloride 97 mmol/L (98-107); Glucose 114 mg/dl (70-99); Potassium 3.7 mmol/L (3.5-5.1); Sodium 131 mmol/L (135-145); Total Bilirubin 1.6 mg/dl (0.2-1.3); Total Protein 7.8 g/dl (6.3-8.2); eGFR > 60.00
--- NOTE | 2024-04-11 12:52 | ED.GENMED ---
History of Present Illness
General
Chief Complaint: Abdominal Symptoms
Source: patient
Time Seen by Provider: 04/11/24 12:31
History of Present Illness
History of Present Illness:
This patient is a 53-year-old female with a history of ischemic colitis, hypertension, Raynaud's, CVA who presents emergency department complaints of intractable nausea and nonbloody vomiting that started yesterday and continues today. She states
that she has 'no pain', but has deep and nausea and is very uncomfortable as a result. She tried Reglan, Compazine, and Zofran at home without relief. She states this is very different from when she had colitis in the past and states 'I do not
have any colitis pains'. Of note, patient was here earlier in the week with nausea vomiting diarrhea which resolved with several meds including Haldol. She had relief until yesterday. She denies chest pain, shortness of breath, fever, chills,
bleeding, coffee-ground emesis, or other complaints. Patient takes cannabinoids up to several times a week for pain related to ischemic colitis.
Past History
Past History
ED Past Medical History: CVA (No residural), HTN and Other (Gastroenteritis, Ischemic Colitis, Reynaud's, diverticulitis, )
ED Past Surgical History: Appendectomy, , Orthopedic (Right knee surgery, ) and Other (Abd reconstruction after Dehiscence of C-sect)
Social History
Tobacco: Former smoker
Alcohol: Occasional
Drug: Other (PrescribeD cannabinoids)
Personal:
Living: with family
Employment: Employed
Family History
Family History: Hypertension
Phy Exam
Physical Exam
Physical Exam:
GENERAL: Alert , appears nauseous
EYE: pupils equal and reactive
NECK: Supple, no significant adenopathy.
ENT: o/p clr, mm slightly dry
CARDIAC: Regular rate and rhythm .
LUNGS: Clear breath sounds bilaterally, no acute respiratory distress, no wheezes/rales/rhonchi
ABDOMEN: Soft, without focal tenderness, no r/g, no cvat
NEUROLOGICAL: Alert and oriented, no focal neuro deficits
SKIN: Warm and dry, skin intact.
MUSCULOSKELETAL: No edema, well perfused.
PSYCH: Normal and appropriate interaction.
Course
Orders/Labs/Results
Orders:
Orders
04/11/24 11:53
Complete Blood Count/With Diff Urgent
Comprehensive Metabolic Panel Urgent
04/11/24 12:45
Cardiac Monitoring- Treatment ONCE
0.9% Sodium Chloride 1000 ml [Nss] 1,000 ml IV BOLUS
Test Result ONCE
04/11/24 12:51
Haloperidol Lactate [Haldol] 2 mg IV NOW STA
04/11/24 13:09
HCG, Serum Qualitative Screen Urgent
Lactic Acid Urgent
Lipase Urgent
Abnormal Lab Results
04/11/24
11:53
MPV 10.9 H fL
(7.4-10.4)
Absolute Neuts (auto) 7.5 H 10^3/uL
(1.4-6.5)
Absolute Monos (auto) 0.8 H 10^3/uL
(0.1-0.6)
Lymphocytes % 18.0 L %
(20.5-51.1)
Sodium 131 L D mmol/L
(135-145)
Chloride 97 L mmol/L
(98-107)
Carbon Dioxide 20 L mmol/L
(22-30)
Glucose 114 H mg/dl
(70-99)
Total Bilirubin 1.6 H mg/dl
(0.2-1.3)
Albumin 5.1 H g/dl
(3.5-5.0)
04/11/24 11:53
04/11/24 11:53
Vital Signs
Initial and Last Documented VS:
Initial Vital Signs
Temp Pulse Resp BP Pulse Ox
98.2 F 107 18 109/85 97
04/11/24 11:28 04/11/24 11:28 04/11/24 11:28 04/11/24 11:28 04/11/24 11:28
Last Documented Vital Signs
Temp Pulse Resp BP Pulse Ox
98.2 F 61 15 145/77 98
04/11/24 11:28 04/11/24 13:15 04/11/24 13:11 04/11/24 13:14 04/11/24 13:30
*Critical Care Note
Total Time (30-74mins, 75-104mins- exclusive of procedures): Not Applicable
Update Note
Update Note:
Patient presents to the Emergency Department with ___repeated __vomiting
Number and Complexity of Problems Addressed at the Encounter
� Chronic conditions affecting care:
� Acute Exacerbation and/or Progression of Chronic Illness:
� Differential Diagnosis includes: But not limited to CHS, viral illness, bowel obstruction, ischemic colitis, etc. etc.
Amount and/or Complexity of Data to be Reviewed and Analyzed
� I performed an independent evaluation of and my interpretation is:
EKG:
CT:
Xrays:
Laboratory Studies: Generally unremarkable, new hyponatremia that is not critical, lactic acid normal
Other:
� Review of other/old records reveals:
� Clinical information was obtained by an independent historian:
� Prescriptions/Medications Considered but not given:
� Further testing considered but not performed:
Risk of Complications and/or Morbidity or Mortality of Patient Management
� Social determinants of health affecting care:
� Discussion with other providers (PCP, Hospitalists, Consultants, etc):
� Escalation of care including admission/observation vs risk of discharge considered: 2:25 PM reassessment patient is smiling, happy, states she feels 'so much better!', No further nausea, vomiting or any other symptoms. Of
note, her primary care doctor received a call from the patient before sending her over and recommended consideration of CAT scan. After long discussion with patient we mutually agreed to defer that at this time given that patient does not have
abdominal pain or tenderness, fever, suspicious lab abnormalities, etc. Patient understands importance of follow-up and reasons return to the ER. In addition, I did suggest to the patient the possibility that her symptoms could be related to CHS,
a diagnosis which she was previously unaware of. She intends to discontinue cannabinoid use.
ED Attending Note
-
Portions of this chart may have been created with voice recognition software.� Occasional wrong word or��sound alike� substitutions may have occurred due to the inherent limitations of voice recognition software.
Discharge Plan
Departure
Patient Disposition: Home (Routine Discharge)
Date of Disposition: 04/11/24
Time of Disposition: 14:27
Patient with high blood pressure during this ER visit?: Yes
Condition: Good
Discharge Problem:
Intractable nausea and vomiting
Instructions: Nausea and Vomiting, Adult (DC), BLOOD PRESSURE
Prescriptions:
No Action
hydrochlorothiazide 25 MG tablet
25 mg PO DAILY
amlodipine 2.5 mg tablet
5 mg PO DAILY
dicyclomine 20 mg tablet
20 mg PO QID PRN (Reason: stomach cramps)
hyoscyamine sulfate 0.125 mg tablet, sublingual
0.125 mg PO DAILY PRN (Reason: stomach issues)
polyethylene glycol 3350 [Miralax] 17 gram/dose powder
4 g PO DAILY Qty: 119 0RF
Benefiber Clear SF (dextrin) 3 gram/3.5 gram powder in packet
1 packet PO .[id number]
ondansetron HCl 4 mg tablet
4 mg PO Q8H PRN (Reason: Nausea) 3 Days Qty: 10 0RF
ondansetron 4 mg tablet,disintegrating
4 mg PO Q6H PRN (Reason: nausea and vomiting) Qty: 7 0RF
Referrals:
Tiarra Hull, [Family Provider] - Follow up in 2-3 days
Activity Restrictions/Additional Instructions:
YOU HAVE SOME LAB ABNORMALITIES THAT REQUIRE FOLLOW-UP WITH YOUR DOCTOR. PLEASE SEE HIM OR HER WITHIN THE NEXT FEW DAYS. IF YOU DEVELOP RECURRENT VOMITING, FEVER, ABDOMINAL PAIN, CHEST PAIN, SHORTNESS OF BREATH, BLEEDING, GET WORSE, DO NOT GET
BETTER, OR OTHER WORRISOME SIGNS, PLEASE RETURN TO THE ER IMMEDIATELY
Interventions
Interventions:
*Risk Screen - Suicide Last Done: 04/11/24 13:08
*General Assessment Last Done: 04/11/24 13:08
*Neglect/Abuse Screening Last Done: 04/11/24 13:08
ED- Fall Risk Assessment Last Done: 04/11/24 13:07
*ED COVID-19 Vaccine History Last Done: 04/11/24 13:08
AG-Volzwl-Zwlneumibb Assessment Last Done: 04/11/24 13:07
Discharge Date and Time
Print Language: PALESTINIAN
[2024-04-11 13:07] VITALS: BMI 22.3
[2024-04-11 13:14] VITALS: BP 145/77
[2024-04-11] MEDS: HALDOL 2 MG IV (13:17)
[2024-04-11] MEDS: NSS 1000 IV (13:18)
[2024-04-11 13:47] LABS: HCG, Serum Qualitative Screen Negative; Lactic Acid 1.2 mmol/L (0.7-2.0)
[2024-04-11 13:48] LABS: Lipase 126 U/L (23-300)
== END 2024-04-11 14:37 | disposition home or self-care (01) ==
LOC: EMR 11:09
PROVIDERS: Emergency Medicine; EMERGENCY PHYSICIAN Emergency Medicine; FAMILY PHYSICIAN Family Medicine Addiction Medicine
DX: R11.2 Nausea with vomiting, unspecified (principal); K55.9 Vascular disorder of intestine, unspecified; I10 Essential (primary) hypertension; I73.00 Raynaud's syndrome without gangrene; Z82.49 Family history of ischemic heart disease and other diseases of the circulatory system; Z86.73 Personal history of transient ischemic attack (TIA), and cerebral infarction without residual deficits; Z90.49 Acquired absence of other specified parts of digestive tract; Z87.891 Personal history of nicotine dependence
CPT/HCPCS: 99283; 96374; 96361; 80053; 83605; 83690; 84703; 85025